=== PATIENT | female | born 1950 | race Two or more races ===

== ENCOUNTER 2023-04-27 12:25 | Inpatient (IN) | payer OTHER ==
[~2023-04-27] VITALS: Ht 142.2 cm; Wt 62.6 kg
[2023-04-27] MEDS ORDERED: GLUMETZA500 MG PO (14:23)
[2023-04-27] MEDS ORDERED: CRESTOR20 MG PO (14:24)
[2023-04-27] MEDS ORDERED: LANTUS (14:24)
[2023-04-27] MEDS ORDERED: PEPCID AC20 MG PO (14:24)
[2023-04-27] MEDS ORDERED: ZETIA10 MG PO (14:25)
[2023-04-27] MEDS ORDERED: COZAAR25 MG PO (14:25)
[2023-05-03] MEDS ORDERED: BRIMONIDINE TART5 ML (15:29)
[2023-05-03] MEDS ORDERED: ST. JOSEPH ASPI81 M2 (15:29)
[2023-05-03] MEDS ORDERED: LATANOPROST2.5 ML (15:30)
[2023-05-03] MEDS ORDERED: TIMOLOL MALEATE5 M3 (15:30)
[2023-05-03] MEDS ORDERED: FENOFIBRATE145 MG (15:30)
[2023-05-03] MEDS ORDERED: PRED FORTE5 ML (15:30)
[2023-05-05] MEDS ORDERED: HYOSCYAMINE0.125 M1 SL (11:13)
== END 2023-05-05 12:53 | disposition home or self-care (01) | DRG 330 ==
LOC: EDBD → SURG 05-02 11:30 → O/R 05-02 11:30 → CIR.AMB 05-02 12:23 → SURG 05-02 12:24 → EDSTATUS 05-02 12:24 → SURG 05-02 12:45
PROVIDERS: ADMIT Colon & Rectal Surgery; ATTEND Colon & Rectal Surgery
PROC: 0DBP4ZZ Excision of Rectum, Percutaneous Endoscopic Approach (ICD-10-PCS; 2023-05-02)
PROC: 0DJD8ZZ Inspection of Lower Intestinal Tract, Via Natural or Artificial Opening Endoscopic (ICD-10-PCS; 2023-05-02)
PROC: 0DQ84ZZ Repair Small Intestine, Percutaneous Endoscopic Approach (ICD-10-PCS; 2023-05-02)
PROC: 0DTN4ZZ Resection of Sigmoid Colon, Percutaneous Endoscopic Approach (ICD-10-PCS; principal; 2023-05-02 15:00)
DX: K57.32 Diverticulitis of large intestine without perforation or abscess without bleeding (principal); K91.71 Accidental puncture and laceration of a digestive system organ or structure during a digestive system procedure; K92.1 Melena; K66.0 Peritoneal adhesions (postprocedural) (postinfection)